=== PATIENT | male | born 1980 | race Hispanic/Latino ===

== ENCOUNTER 2016-12-18 17:36 | Emergency (ER) | payer OTHER ==
--- NOTE | 2016-12-18 19:05 | C.PDOC ---
History Of Present Illness 36 y/o M c PMHx asthma p/w L sided chest pressure x 3 weeks, radiating to L arm and tingling in L hand. He states that he feels like he can not get enough air but it feels different from his typical asthma. He has seen his PMD for these symptoms but has not had improvement with prescribed medications. He denies fever, recent travel, recent surgery or trauma, previous DVT/PE, cough. He notes a feeling of chills. Time Seen by Provider: 12/18/16 18:39 Chief Complaint (Nursing): Shortness Of Breath Past Medical History Vital Signs: Last Vital Signs Temp 97.9 F 12/18/16 17:46 Pulse 76 12/18/16 17:46 Resp 20 12/18/16 18:52 BP 141/100 H 12/18/16 17:46 Pulse Ox 100 12/18/16 19:06 - Medical History PMH: Asthma Family History: States: No Known Family Hx - Social History Hx Tobacco Use: Yes (former smoker, quit 10 yrs ago) Hx Alcohol Use: No Hx Substance Use: No - Immunization History Hx Tetanus Toxoid Vaccination: No Hx Influenza Vaccination: No Hx Pneumococcal Vaccination: No Review Of Systems Except As Marked, All Systems Reviewed And Found Negative. Constitutional: Negative for: Fever Cardiovascular: Positive for: Chest Pain Physical Exam - Physical Exam Additional Physical Exam Comments: Constitutional: No acute distress. Head: Normocephalic. Atraumatic. Eyes: PERRL. EOMI ENT: Moist mucous membranes. Neck: Supple. Cardiovascular: Regular rate. Radial pulses 2+ bilaterally. Chest: No tenderness. Respiratory: Clear to auscultation bilaterally. GI: Soft. Nontender. Nondistended. Back: No CVA tenderness. No midline tenderness. Musculoskeletal: No tenderness or swelling of extremities. Skin: No rash. Neurologic: Alert, no focal deficit. ED Course And Treatment - Laboratory Results Result Diagrams: 12/18/16 19:25 12/18/16 19:25 O2 Sat by Pulse Oximetry: 100 Medical Decision Making Medical Decision Making: PERC negative. Rule out ACS with 1 set in pain of 3 days. Check CXR for PNA, PTX. Otherwise, will require f/u with PMD for further evaluation. EKG NSR 64 bpm, no ST/T wave changes. Labs unremarkable. Enzymes ngeative. CXR shows no fx, PTX, infiltrate. Patient in no distress. Disposition - Disposition Disposition: HOME/ ROUTINE Disposition Time: 20:05 Condition: STABLE Instructions: Chest Pain (ED) - Clinical Impression Clinical Impression: Chest pain
[2016-12-18 19:28] LABS: BASO # 0.1 K/uL (0.0-0.2); BASO % 1.1 % (0.0-2.0); EOS # 0.6 K/uL (0.0-0.7); EOS % 7.7 % (0.0-4.0); HEMATOCRIT 43.2 % (35.0-51.0); LYMPH # 1.8 K/uL (1.0-4.3); LYMPH % 22.8 % (20.0-40.0); MEAN CELL VOLUME 87.7 fL (80.0-94.0); MEAN CORPUSCULAR HEMOGLOBIN 29.4 pg (27.0-31.0); MEAN CORPUSCULAR HGB CONC 33.6 g/dL (33.0-37.0); MEAN PLATELET VOLUME 7.4 fL (7.2-11.7); MONO # 0.6 K/uL (0.0-0.8); MONO % 7.5 % (0.0-10.0); RED CELL DISTRIBUTION WIDTH 13.6 % (11.5-14.5); WHITE BLOOD COUNT 7.9 K/uL (4.8-10.8)
[2016-12-18 19:41] LABS: CHLORIDE 100 mmol/L (98-107)
[2016-12-18 19:42] LABS: SODIUM 141 mmol/L (132-148)
[2016-12-18 19:44] LABS: ALB/GLOB RATIO 1.2 (1.0-2.1); ALKALINE PHOSPHATASE 35 U/L (38-126); ALT/SGPT 22 U/L (21-72); AST/SGOT 26 U/L (17-59); BILIRUBIN,TOTAL 0.3 mg/dL (0.2-1.3); BLOOD UREA NITROGEN 14 mg/dL (9-20); CARBON DIOXIDE 28 mmol/L (22-30); GFR AFRICAN-AMERICAN > 60; GLUCOSE,RANDOM 97 mg/dL (75-110); TOTAL PROTEIN 7.7 g/dL (6.3-8.3)
[2016-12-18 19:45] LABS: CALCIUM 8.3 mg/dl (8.6-10.4)
[2016-12-18 20:21] VITALS: BP 121/80; PULSE 70; RESP 18; TEMP 98.4; O2SAT 98
--- NOTE | 2016-12-19 08:44 | RAD ---
HISTORY: Chest pain COMPARISON: No prior. TECHNIQUE: Chest PA and lateral FINDINGS: LUNGS: No focal infiltrate or effusion. Right hilar prominence. PLEURA: No significant pleural effusion identified. No pneumothorax apparent. CARDIOVASCULAR: Normal. OSSEOUS STRUCTURES: Deformity of the mid right clavicle. VISUALIZED UPPER ABDOMEN: Normal. OTHER FINDINGS: None. IMPRESSION: No focal infiltrate or effusion. Right hilar prominence. Persistent deformity of the mid right clavicle.
--- NOTE | 2016-12-19 23:11 | CARD ---
APPROVED REPORT EKG Measurement Heart [id number] <Conclusion> Normal sinus rhythm Normal ECG
== END 2016-12-18 20:22 | disposition home or self-care (01) ==
LOC: C.ER 17:36
DX: R07.89 Other chest pain (principal)

== ENCOUNTER 2017-07-04 08:16 | Day surgery (SDC) | payer OTHER ==
[2017-05-17 09:25] VITALS: BMI 32.5
[2017-07-04] MEDS ORDERED: Acetaminophen/Codeine elixir 120-12mg/5ml PO PRN (08:58)
[2017-07-04] MEDS ORDERED: Dextrose 5%/0.45% NS 1,000 ML IV SCH (09:00)
[2017-07-04] MEDS ORDERED: ceFAZolin IV 2 gm in Dextrose 1 GM/50 ML BAG IVPB ONE (11:50)
[2017-07-04] MEDS ORDERED: Propofol 10 mg/ml Inj (20 ML) ONE (11:51)
[2017-07-04] MEDS ORDERED: Midazolam 2 MG/2 ML VIAL ONE (11:51)
[2017-07-04] MEDS ORDERED: Lactated Ringer's 1,000 ML IV ONE (11:55)
[2017-07-04] MEDS: HYDROmorphone 0.5 mg/0.5 ml ISec IVP PRN ×2 (12:48→13:08)
[2017-07-04 14:11] VITALS: RESP 16; TEMP 97.2
[2017-07-04 14:39] VITALS: BP 103/57; PULSE 64; O2SAT 100
--- NOTE | 2017-07-04 18:41 | OP ---
PROCEDURE DATE: 07/04/2017 PREOPERATIVE DIAGNOSIS: Chronic tonsillitis. POSTOPERATIVE DIAGNOSIS: Chronic tonsillitis. PROCEDURE: Tonsillectomy. SIGNIFICANT FINDINGS: 2+ tonsils. DESCRIPTION OF PROCEDURE: The patient was brought into the room, placed in supine position and anesthesia was initiated through an ET tube. The patient was draped in the usual manner. Mouth gag was placed in the oral cavity, opened and suspended on the [place] and service supervisor the usual manner. Right tonsil was grabbed and hold medially. Incision was made in the anterior tonsillar pillar using plasma. Dissections were done between tonsil and tonsillar fossa using a plasma knife until the tonsil was removed. Bleeding was controlled using a plasma knife. Next, the other tonsil was grabbed and hold medially. Incision was made in the anterior tonsillar pillar using a plasma knife. Dissections were done between tonsil and tonsillar fossa using a plasma knife until the tonsil was removed. Bleeding was controlled using a plasma knife. Both tonsillar beds were rubbed vigorously with a plasma knife wand. No bleeding was noted. Mouth gag was let down for 30 seconds and put back up. No bleeding was noted. The mouth gag was taken down and removed. The patient was taken off anesthesia and taken to recovery room in stable manner. Damir Robles MD
== END 2017-07-04 14:31 | disposition home or self-care (01) ==
LOC: C.SDS 08:16
PROVIDERS: ATTEND Otolaryngology
DX: J35.01 Chronic tonsillitis (principal)
CPT/HCPCS: 42826; 88304; J0690; J1100; J1170; J2250; J2704; J3010; J7040; J7120